=== PATIENT | male | born 1970 | race Two or more races ===

== ENCOUNTER 2017-03-29 22:46 | Emergency (ER) | payer SELFPAY ==
[2017-03-29 22:54] VITALS: BP 123/78
[2017-03-29] MEDS ORDERED: ACETAMINOPHEN 325 MG TABLET PO ONE (23:22)
--- NOTE | 2017-03-29 23:22 | ER Document Report ---
ED Extremity Problem, Lower - General Mode of Arrival: Ambulatory Information source: Patient TRAVEL OUTSIDE OF THE [place] IN LAST 30 DAYS: No - General Chief Complaint: Foot Injury Stated Complaint: FOOT INJURY Time Seen by Provider: 03/29/17 23:09 Notes: Patient is a 46 year old male that presents to the emergency department today with complaints of left foot pain. Patient states he is staying at a hotel, he attempted to open a drawer and it would not open, he says he believes it was stuck, so he "yanked on it". Patient states that he pulled it completely out and it fell on his left foot. Patient complains of left foot pain. (VENU STAPLES) - Related Data Allergies/Adverse Reactions: NSAIDS (Non-Steroidal Anti-Inflamma Allergy (Verified 03/29/17 22:54) Past Medical History - General Information source: Patient - Social History Smoking Status: Unknown if Ever Smoked Frequency of alcohol use: None Drug Abuse: None Lives with: Family Family History: Reviewed & Not Pertinent Patient has suicidal ideation: No Patient has homicidal ideation: No - Medical History Medical History: Negative Surgical Hx: Negative Review of Systems - Review of Systems Constitutional: No symptoms reported EENT: No symptoms reported Cardiovascular: No symptoms reported Respiratory: No symptoms reported Gastrointestinal: No symptoms reported Genitourinary: No symptoms reported Male Genitourinary: No symptoms reported Musculoskeletal: See HPI, Joint pain - left foot pain Skin: No symptoms reported Hematologic/Lymphatic: No symptoms reported Neurological/Psychological: No symptoms reported -: Yes All other systems reviewed and negative Physical Exam - Vital signs Vitals: Temp Pulse Resp BP Pulse Ox 97.8 F 84 18 123/78 100 03/29/17 22:47 03/29/17 22:47 03/29/17 22:47 03/29/17 22:47 03/29/17 22:47 - Notes Notes: Physical Exam: General: Alert, appears well. HEENT: Normocephalic. Atraumatic. PERRLA. Extraocular movements intact. Oropharynx clear. Neck: Supple. Respiratory: No respiratory distress. Abdominal: Normal Inspection. No distension. Extremities: Cringes in anticipatory pain when coming close to his left foot. No deformity appreciated. Superficial abrasion to top of left foot without obvious swelling. Neurological: Cranial nerves II-XII grossly intact bilaterally. Normal cognition. AAOx4. Normal speech. Psychological: Normal affect. Normal Mood. Skin: Warm. Dry. Normal color. (VENU STAPLES) Course - Re-evaluation Re-evalutation: 03/29/17 23:43 Patient presents emergency department very bizarre behavior before you even touch the bed he says he is in excruciating pain he appears to be under the influence of some sort of medication. States that he is from [place] staying at the hotel when he pulled out the dresser and fell on the top of his foot. He has a small abrasion there when you go anywhere near it he starts screaming and yelling. He has no bony tenderness or deformity at the ankle proximal tib- fib chest abdomen or back. X-ray is negative for acute fracture or pathology. I gave him a dose of Tylenol here no clinical concerns for other etiology that needs to be investigated currently will discharge and discussed reasons for ED return sooner (BABAK ZHOU) - Vital Signs Vital signs: Temp Pulse Resp BP Pulse Ox 97.8 F 84 18 123/78 100 03/29/17 22:47 03/29/17 22:47 03/29/17 22:47 03/29/17 22:47 03/29/17 22:47 Discharge - Discharge Clinical Impression: Abrasion of left foot Qualifiers: Encounter type: initial encounter Qualified Code(s): S90.812A - Abrasion, left foot, initial encounter Condition: Stable Disposition: HOME, SELF-CARE Additional Instructions: Abrasions An abrasion is a scraping injury of the skin. Some scarring may result. The seriousness of an abrasion is not always obvious at first. Hidden tissue damage may be present and infection may occur despite proper care. Complete healing may take from ten days to as long as a month. The healing time depends on the depth of the abrasion, and on the amount of crushing of underlying tissues from the injury. Keep the wound and dressing clean. Do not shower or bathe the area until okayed by the doctor. If the dressing gets wet, remove it and blot the wound dry, then reapply a clean dressing. Dressings should be changed every day. Sunscreen should be used for six months after the skin is healed. If any signs of infection occur (swelling, redness, increasing tenderness, red streaks, profuse purulent drainage from the abrasion, tender lumps in the armpit or groin above the abrasion, or fever), see the doctor immediately. Follow-up with your primary care physician in 3-5 days return for increasing worsening or new symptoms Scribe Attestation: 03/29/17 23:42 I personally performed the services described in the documentation reviewed the documentation recorded by my scribe in my presence and it accurately and completely records my words and actions (BABAK ZHOU) Scribe Documentation - Scribe Written by Ramona:: Ramona Yee, 03/29/2017 [id number] acting as scribe for :: Jake
[2017-03-29] MEDS ORDERED: ACETAMINOPHEN 325 MG TABLET ONE (23:32)
--- NOTE | 2017-03-29 23:38 | RADIOLOGY REPORT (SQ) ---
EXAM DESCRIPTION: FOOT LEFT COMPLETE COMPLETED DATE/TIME: 03/29/2017 11:23 pm REASON FOR STUDY: Pain s/p injury COMPARISON: None. NUMBER OF VIEWS: Three views. TECHNIQUE: AP, lateral and oblique radiographic images acquired of the left foot. LIMITATIONS: None. FINDINGS: MINERALIZATION: Normal. BONES: No acute fracture or dislocation. No worrisome bone lesions. JOINTS: No effusions. SOFT TISSUES: No soft tissue swelling. No foreign body. OTHER: No other significant finding. IMPRESSION: NEGATIVE STUDY OF THE LEFT FOOT. NO RADIOGRAPHIC EVIDENCE OF ACUTE INJURY. TECHNICAL DOCUMENTATION: JOB ID: [id number] [employer]- All Rights Reserved
== END 2017-03-30 00:02 | disposition home or self-care (01) ==
LOC: ER 22:46
DX: S90.812A Abrasion, left foot, initial encounter (principal); M79.672 Pain in left foot; W22.03XA Walked into furniture, initial encounter
CPT/HCPCS: 99283